=== PATIENT | male | born 1995 | race Two or more races ===

== ENCOUNTER 2023-01-19 09:17 | Inpatient (IN) ==
--- NOTE | 2023-01-19 09:54 | Emergency Department Note ---
History of Present Illness General Chief complaint: Fever Stated complaint: FEVER, CHILLS, BODY PAIN, LOST OF TASTE Time Seen by Provider: 01/19/23 09:40 History of Present Illness Maximum Pain Intensity: 7 this is a 27-year-old male that presents to the emergency department via private vehicle with complaints of "fever". The patient notes that this past Wednesday he began with chills, fever. Patient notes since that time he has had some trouble with his hearing and feels as though that sounds are amplified. He notes associated head pressure, eye pain. Patient also notes balance issues as of this morning. Patient notes a redness to his body. Patient feels very fatigued. Patient notes loss of taste as well as associated cough this morning. He also notes some shortness of breath with talking. No known recent exposure to ill contacts. Patient is currently on Bactrim for cellulitis of secondary to infected tattoo of the left upper extremity but notes that the arm seems to be almost fully healed. No known drug allergy. No pertinent past medical history. No recent surgeries. Patient denies any rhinorrhea, chest pain, nausea, vomiting, diarrhea, sore throat. Home Medications Medication Instructions Recorded Confirmed Type ibuprofen 200 mg tablet 400 mg PO Q6H PRN Fever Or Pain 01/19/23 01/19/23 History Allergies Allergy/AdvReac Type Severity Reaction Status Date / Time No Known Drug Allergies Allergy Unknown Verified 01/19/23 14:57 Past Med/Surg History Medical History No pertinent past medical history Surgical History No pertinent past surgical history Social History Feels Safe at Home: Yes Review of Systems A total of 10 systems reviewed and were otherwise negative Physical Exam Vital Signs Vital Signs - 24 hr 01/19/23 09:34 01/19/23 11:46 01/19/23 12:04 Temperature 39.1 C H 39.9 C H Temperature Source Temporal Artery Scan Oral Pulse Rate 137 H 124 H Pulse Rate from SpO2 Sensor Pulse Rhythm Regular Respiratory Rate 20 26 H Respiratory Effort / Characteristics Non-Labored Spontaneous Respiratory Depth Normal Blood Pressure 145/71 H Blood Pressure Mean 95 Pulse Oximetry 100 99 Oxygen Delivery Method Room Air Room Air Sepsis Recent Fever Within 48 Hours No Sepsis New/Unexplained Change in Mental Status N/A Sepsis Action Taken by Nursing Adv Provider Notified 01/19/23 12:12 01/19/23 11:42 01/19/23 11:50 Temperature Temperature Source Pulse Rate 124 H 124 H 124 H Pulse Rate from SpO2 Sensor Pulse Rhythm Respiratory Rate 21 23 Respiratory Effort / Characteristics Respiratory Depth Blood Pressure Blood Pressure Mean Pulse Oximetry 96 98 Oxygen Delivery Method Room Air Room Air Sepsis Recent Fever Within 48 Hours Sepsis New/Unexplained Change in Mental Status Sepsis Action Taken by Nursing 01/19/23 12:00 01/19/23 12:10 01/19/23 12:20 Temperature Temperature Source Pulse Rate 125 H 122 H 124 H Pulse Rate from SpO2 Sensor Pulse Rhythm Respiratory Rate 27 H 29 H 28 H Respiratory Effort / Characteristics Respiratory Depth Blood Pressure Blood Pressure Mean Pulse Oximetry 98 98 97 Oxygen Delivery Method Room Air Room Air Room Air Sepsis Recent Fever Within 48 Hours Sepsis New/Unexplained Change in Mental Status Sepsis Action Taken by Nursing 01/19/23 13:00 01/19/23 13:05 01/19/23 13:05 Temperature Temperature Source Pulse Rate 116 H Pulse Rate from SpO2 Sensor 115 H Pulse Rhythm Respiratory Rate 24 20 Respiratory Effort / Characteristics Respiratory Depth Blood Pressure 146/81 H Blood Pressure Mean 102 Pulse Oximetry 99 100 Oxygen Delivery Method Room Air Room Air Sepsis Recent Fever Within 48 Hours Sepsis New/Unexplained Change in Mental Status Sepsis Action Taken by Nursing VITAL SIGNS - Vital signs and nursing notes were reviewed. Tachycardic, febrile. GENERAL -27-year-old male appearing his stated age who is in no acute distress. Communicates well with provider and answers questions appropriately. SKIN -there is a mild erythematous hue to the patient's integument without skin sloughing. No bullae. Negative Nikolsky sign. No vesicles. Tattoo of the left upper extremity is within normal limits without evidence of concerning surrounding erythema or edema. No lymphangitic streaking. HEAD - NC/AT. EYES - Sclera anicteric. EARS - No deformities of external structures noted on gross examination bilaterally. No pain elicited with palpation of the tragus bilaterally. External auditory canals without discharge or otorrhea. Tympanic membranes pearly marie without retraction or bulging. No fluid or purulent material visualized behind the TM. Handle of malleus, umbo, cone of light, pars tensa/flaccid all easily visualized. NOSE - Midline and without cyanosis. No epistaxis or purulent drainage noted. Septum midline without deviation or septal hematoma noted. MOUTH/OROPHARYNX - Without perioral cyanosis. Buccal mucosa pink and moist and without leukoplakia. Tongue midline with equal elevation of palate bilaterally. No tonsillar hypertrophy, erythema, or exudates noted. Good dentition noted. NECK - Neck with FROM. Supple to palpation. No lymphadenopathy noted. No nuchal rigidity. No meningismus. LUNGS - Chest wall symmetric without accessory muscle use, intercostals retractions, or central cyanosis. Normal vesicular breath sounds CTA B/L. No wheezes, rales, or rhonchi appreciated. CARDIAC - RRR with S1/S2. No murmur, rubs, or gallops appreciated. ABDOMEN - Abdominal contour normal without pulsations or visible masses. BS normoactive all four quadrants. No tenderness, palpable masses, hepato splenomegaly, or ascites noted. EXTREMITIES - No clubbing or peripheral cyanosis. +5/5 strength noted in UE/LE bilaterally. NEUROLOGIC - Cranial nerves II through XII grossly intact. PSYCH - A&O, and cooperates fully with examiner. Pt is very pleasant and interacts well with examiner. Course Administered Medications Acetaminophen (Acetaminophen 325 Mg Tab) 650 mg PO Q4H PRN PRN Reason: Pain or Fever Stop: 02/18/23 15:34 Last Admin: 01/19/23 15:54 Dose: 650 mg Documented By: MARC Lactated Ringer's (Lr) 1,000 mls @ 125 mls/hr IV .Q8H [facility] Stop: 02/18/23 15:34 Last Admin: 01/19/23 15:54 Dose: 125 mls/hr Documented By: MARC Discontinued Medications Acetaminophen (Acetaminophen 325 Mg Tab) 650 mg PO NOW STA Stop: 01/19/23 10:22 Last Admin: 01/19/23 10:35 Dose: 650 mg Documented By: ANDREA Sodium Chloride (Nss 1000ml) 1,000 mls @ 999 mls/hr IV .Q1H1M JU Stop: 01/19/23 11:00 Last Infusion: 01/19/23 11:45 Dose: 0 mls/hr Documented By: Admin: 01/19/23 10:35 Dose: 999 mls/hr Documented By: ANDREA Ceftriaxone Sodium (Rocephin) 2,000 mg in 70 mls @ 140 mls/hr IV NOW STA Stop: 01/19/23 11:55 Last Infusion: 01/19/23 12:33 Dose: 0 mls/hr Documented By: Admin: 01/19/23 11:45 Dose: 140 mls/hr Documented By: ANDREA Sodium Chloride (Nss 1000ml) 1,000 mls @ 999 mls/hr IV .Q1H1M JU Stop: 01/19/23 12:30 Last Infusion: 01/19/23 13:03 Dose: 0 mls/hr Documented By: Admin: 01/19/23 11:45 Dose: 999 mls/hr Documented By: ANDREA Medical Decision Making Laboratory Data 01/19/23 10:15 01/19/23 10:15 Lab Results 01/19/23 01/19/23 01/19/23 Range/Units 10:00 10:15 10:15 WBC (4.8-10.8) K/ul RBC (4.70-6.10) M/uL Hgb (14.0-18.0) g/dl Hct (42.0-52.0) % MCV (80.0-100.0) fL MCH (25.0-34.0) pg MCHC (32.0-36.0) g/dL RDW Std Deviation (36.4-46.3) fL RDW Coeff of Kip (11.5-14.5) % Plt Count (130-400) K/uL MPV (9.4-12.4) fL Immature Gran % (Auto) % Neut % (Auto) % Lymph % (Auto) % [place] % (Auto) % Eos % (Auto) % Baso % (Auto) % Neut # (Auto) (1.40-6.50) K/uL Lymph # (Auto) (1.2-3.4) K/uL [place] # (Auto) (0.11-0.59) K/uL Eos # (Auto) (0-0.50) K/uL Baso # (Auto) (0-0.2) K/uL Immature Gran # (Auto) (0.01-0.20) K/uL ESR (0-15) mm/hr Sodium (136-145) mmol/L Potassium (3.5-5.1) mmol/L Chloride (98-107) mmol/L Carbon Dioxide (21-32) mmol/L Anion Gap (3-11) BUN (6-23) mg/dl Creatinine (0.6-1.4) mg/dl Est Cr Clr Drug Dosing ml/min Est GFR ( Amer) ml/min Est GFR (Non-Af Amer) ml/min BUN/Creatinine Ratio (10-20) Glucose (70-99(Fasting)) mg/dl Lactate 1.6 (0.4-2.0) mmol/L Calcium (8.6-10.3) mg/dl Total Bilirubin (0.2-1.0) mg/dl AST (13-39) U/L ALT (7-52) U/L Alkaline Phosphatase (34-104) U/L Total Creatine Kinase (30-223) U/L Troponin I High Sens (0-20) pg/ml C-Reactive Protein (0-0.5) mg/dl Total Protein (6.0-8.3) gm/dl Albumin (3.4-5.0) gm/dl Globulin (2.5-4.0) gm/dl Albumin/Globulin Ratio (0.9-2) Procalcitonin 1.05 H (0-0.5) ng/ml Urine Color Urine Appearance (Clear) Urine pH (4.5-7.5) Ur Specific [place] (1.000-1.030) Urine Protein (Negative) Urine Glucose (UA) (Negative) Urine Ketones (Negative) Urine Blood (Negative) Urine Nitrite (Negative) Urine Bilirubin (Negative) Urine Urobilinogen (Negative) Ur Leukocyte Esterase (Negative) Anaplasma Smear Babesia Smear Lyme Disease IgG Ab Negative (Negative) Lyme Disease IgM Ab Negative (Negative) Monoscreen Negative (Negative) Group A Strep (PCR) NOT DETECTED (NotDetected) 01/19/23 01/19/23 01/19/23 Range/Units 10:15 10:15 10:15 WBC 3.54 L (4.8-10.8) K/ul RBC 4.99 (4.70-6.10) M/uL Hgb 14.1 (14.0-18.0) g/dl Hct 41.8 L (42.0-52.0) % MCV 83.8 (80.0-100.0) fL MCH 28.3 (25.0-34.0) pg MCHC 33.7 (32.0-36.0) g/dL RDW Std Deviation 38.0 (36.4-46.3) fL RDW Coeff of Kip 12.4 (11.5-14.5) % Plt Count 133 (130-400) K/uL MPV 9.7 (9.4-12.4) fL Immature Gran % (Auto) 0.3 % Neut % (Auto) 74.8 % Lymph % (Auto) 14.7 % [place] % (Auto) 9.6 % Eos % (Auto) 0.6 % Baso % (Auto) 0.0 % Neut # (Auto) 2.65 (1.40-6.50) K/uL Lymph # (Auto) 0.52 L (1.2-3.4) K/uL [place] # (Auto) 0.34 (0.11-0.59) K/uL Eos # (Auto) 0.02 (0-0.50) K/uL Baso # (Auto) 0.00 (0-0.2) K/uL Immature Gran # (Auto) 0.01 (0.01-0.20) K/uL ESR (0-15) mm/hr Sodium 132 L (136-145) mmol/L Potassium 4.1 (3.5-5.1) mmol/L Chloride 100 (98-107) mmol/L Carbon Dioxide 22 (21-32) mmol/L Anion Gap 10 (3-11) BUN 18 (6-23) mg/dl Creatinine 2.22 H (0.6-1.4) mg/dl Est Cr Clr Drug Dosing 72.6 ml/min Est GFR ( Amer) 46.0 ml/min Est GFR (Non-Af Amer) 39.7 ml/min BUN/Creatinine Ratio 8.1 L (10-20) Glucose 132 H (70-99(Fasting)) mg/dl Lactate (0.4-2.0) mmol/L Calcium 8.3 L (8.6-10.3) mg/dl Total Bilirubin 0.4 (0.2-1.0) mg/dl AST 45 H (13-39) U/L ALT 58 H (7-52) U/L Alkaline Phosphatase 50 (34-104) U/L Total Creatine Kinase 210 Cancelled (30-223) U/L Troponin I High Sens 15.5 Cancelled (0-20) pg/ml C-Reactive Protein (0-0.5) mg/dl Total Protein 7.0 (6.0-8.3) gm/dl Albumin 4.1 (3.4-5.0) gm/dl Globulin 2.9 (2.5-4.0) gm/dl Albumin/Globulin Ratio 1.4 (0.9-2) Procalcitonin (0-0.5) ng/ml Urine Color Urine Appearance (Clear) Urine pH (4.5-7.5) Ur Specific [place] (1.000-1.030) Urine Protein (Negative) Urine Glucose (UA) (Negative) Urine Ketones (Negative) Urine Blood (Negative) Urine Nitrite (Negative) Urine Bilirubin (Negative) Urine Urobilinogen (Negative) Ur Leukocyte Esterase (Negative) Anaplasma Smear Babesia Smear Lyme Disease IgG Ab (Negative) Lyme Disease IgM Ab (Negative) Monoscreen (Negative) Group A Strep (PCR) (NotDetected) 01/19/23 01/19/23 01/19/23 Range/Units 12:36 12:36 12:37 WBC (4.8-10.8) K/ul RBC (4.70-6.10) M/uL Hgb (14.0-18.0) g/dl Hct (42.0-52.0) % MCV (80.0-100.0) fL MCH (25.0-34.0) pg MCHC (32.0-36.0) g/dL RDW Std Deviation (36.4-46.3) fL RDW Coeff of Kip (11.5-14.5) % Plt Count (130-400) K/uL MPV (9.4-12.4) fL Immature Gran % (Auto) % Neut % (Auto) % Lymph % (Auto) % [place] % (Auto) % Eos % (Auto) % Baso % (Auto) % Neut # (Auto) (1.40-6.50) K/uL Lymph # (Auto) (1.2-3.4) K/uL [place] # (Auto) (0.11-0.59) K/uL Eos # (Auto) (0-0.50) K/uL Baso # (Auto) (0-0.2) K/uL Immature Gran # (Auto) (0.01-0.20) K/uL ESR 4 (0-15) mm/hr Sodium (136-145) mmol/L Potassium (3.5-5.1) mmol/L Chloride (98-107) mmol/L Carbon Dioxide (21-32) mmol/L Anion Gap (3-11) BUN (6-23) mg/dl Creatinine (0.6-1.4) mg/dl Est Cr Clr Drug Dosing ml/min Est GFR ( Amer) ml/min Est GFR (Non-Af Amer) ml/min BUN/Creatinine Ratio (10-20) Glucose (70-99(Fasting)) mg/dl Lactate (0.4-2.0) mmol/L Calcium (8.6-10.3) mg/dl Total Bilirubin (0.2-1.0) mg/dl AST (13-39) U/L ALT (7-52) U/L Alkaline Phosphatase (34-104) U/L Total Creatine Kinase (30-223) U/L Troponin I High Sens (0-20) pg/ml C-Reactive Protein 0.94 H (0-0.5) mg/dl Total Protein (6.0-8.3) gm/dl Albumin (3.4-5.0) gm/dl Globulin (2.5-4.0) gm/dl Albumin/Globulin Ratio (0.9-2) Procalcitonin (0-0.5) ng/ml Urine Color Urine Appearance (Clear) Urine pH (4.5-7.5) Ur Specific [place] (1.000-1.030) Urine Protein (Negative) Urine Glucose (UA) (Negative) Urine Ketones (Negative) Urine Blood (Negative) Urine Nitrite (Negative) Urine Bilirubin (Negative) Urine Urobilinogen (Negative) Ur Leukocyte Esterase (Negative) Anaplasma Smear See Comment Babesia Smear See Comment Lyme Disease IgG Ab (Negative) Lyme Disease IgM Ab (Negative) Monoscreen (Negative) Group A Strep (PCR) (NotDetected) 01/19/23 Range/Units 12:45 WBC (4.8-10.8) K/ul RBC (4.70-6.10) M/uL Hgb (14.0-18.0) g/dl Hct (42.0-52.0) % MCV (80.0-100.0) fL MCH (25.0-34.0) pg MCHC (32.0-36.0) g/dL RDW Std Deviation (36.4-46.3) fL RDW Coeff of Kip (11.5-14.5) % Plt Count (130-400) K/uL MPV (9.4-12.4) fL Immature Gran % (Auto) % Neut % (Auto) % Lymph % (Auto) % [place] % (Auto) % Eos % (Auto) % Baso % (Auto) % Neut # (Auto) (1.40-6.50) K/uL Lymph # (Auto) (1.2-3.4) K/uL [place] # (Auto) (0.11-0.59) K/uL Eos # (Auto) (0-0.50) K/uL Baso # (Auto) (0-0.2) K/uL Immature Gran # (Auto) (0.01-0.20) K/uL ESR (0-15) mm/hr Sodium (136-145) mmol/L Potassium (3.5-5.1) mmol/L Chloride (98-107) mmol/L Carbon Dioxide (21-32) mmol/L Anion Gap (3-11) BUN (6-23) mg/dl Creatinine (0.6-1.4) mg/dl Est Cr Clr Drug Dosing ml/min Est GFR ( Amer) ml/min Est GFR (Non-Af Amer) ml/min BUN/Creatinine Ratio (10-20) Glucose (70-99(Fasting)) mg/dl Lactate (0.4-2.0) mmol/L Calcium (8.6-10.3) mg/dl Total Bilirubin (0.2-1.0) mg/dl AST (13-39) U/L ALT (7-52) U/L Alkaline Phosphatase (34-104) U/L Total Creatine Kinase (30-223) U/L Troponin I High Sens (0-20) pg/ml C-Reactive Protein (0-0.5) mg/dl Total Protein (6.0-8.3) gm/dl Albumin (3.4-5.0) gm/dl Globulin (2.5-4.0) gm/dl Albumin/Globulin Ratio (0.9-2) Procalcitonin (0-0.5) ng/ml Urine Color Yellow Urine Appearance Clear (Clear) Urine pH 5.5 (4.5-7.5) Ur Specific [place] 1.017 (1.000-1.030) Urine Protein Negative (Negative) Urine Glucose (UA) Negative (Negative) Urine Ketones Negative (Negative) Urine Blood Negative (Negative) Urine Nitrite Negative (Negative) Urine Bilirubin Negative (Negative) Urine Urobilinogen Negative (Negative) Ur Leukocyte Esterase Negative (Negative) Anaplasma Smear Babesia Smear Lyme Disease IgG Ab (Negative) Lyme Disease IgM Ab (Negative) Monoscreen (Negative) Group A Strep (PCR) (NotDetected) Imaging Data Radiologist's Impression: Chest X-Ray 01/19/23 10:01 XR chest 1V portable HISTORY: 27 years-old Male fever acute fever COMPARISON: None TECHNIQUE: AP view of the chest FINDINGS: Cardiomediastinal and hilar silhouettes are within normal limits. No pneumothor ax, pleural effusion, airspace consolidation or pulmonary edema. The bones appear grossly intact. IMPRESSION: No acute process. ACT 112: Negative or not required by law. The above report was generated using voice recognition software. It may contain grammatical, syntax or spelling errors. Electronically signed by: Semaj Azul M.D. 01/19/2023 10:16 AM [facility] Narrative Patient was seen and evaluated as above in room A09. Review was performed of triage nursing notes and vital signs. After obtaining a thorough history and physical examination the above work up was performed. Patient presents to us today with a fever. He clinically is well-appearing and nontoxic. He has some associated chills, body aches and headache. Despite being tachycardic and f ebrile, he looks well. No photophobia on examination. No nuchal rigidity. Presentation not consistent with that of SJS. Options of care were discussed with the patient. IV access was established. Labs were drawn. Mild leukopenia. No concerning anemia. Mild hyponatremia 134. OLIVIA with creatinine of 2.2 noted. Glucose 132. Calcium low at 8.3. Transaminitis with AST at 45 and ALT at 58. Troponin within normal range. Procalcitonin 1.05. Lactate normal. Blood cultures pending. Urinalysis negative. Bio fire panel negative. Lyme testing negative. Strep testing negative. Monotest negative. IV fluids ordered noting the patient's febrile state in the setting of tachycardia with suspected dehydration. In addition, acetaminophen was ordered to treat the fever. Empiric antibiotics also added. Although my suspicion is high of a viral illness, I do believe that further evaluation and management in inpatient setting is warranted at this time noting the patient's tachycardic and febrile state in the setting of OLIVIA. LP was considered however at this time we will refrain as the patient on examination does not appear meningitic. No nuchal rigidity. Case discussed with the ospitalist service. Please refer to further documentation regarding his stay. Case discussed with the attending physician. GCS: 15 In the evaluation and treatment of this patient the following differential diagnoses were entertained: Pneumonia, meningitis, encephalitis, viral illness, mononucleosis, strep pharyngitis, hepatitis, bacteremia, sepsis, SJS, among others. Impression & Plan Fever, SIRS (systemic inflammatory response syndrome), Transaminitis, Leukopenia, OLIVIA (acute kidney injury) Discharge Plan Visit Data Chief Complaint: Fever Stated Complaint: FEVER, CHILLS, BODY PAIN, LOST OF TASTE ED Provider: Dima Mayes ED Midlevel Provider: Jonny Espino Discharge Problem: Fever, SIRS (systemic inflammatory response syndrome), Transaminitis, Leukopenia, OLIVIA (acute kidney injury) Patient Disposition: Admitted As Inpatient Condition: Good Discharge Instructions Interventions: ED Discharge Assessment Last Done: 01/19/23 15:35
[2023-01-19] MEDS ORDERED: SODIUM CHLORIDE 0.9% 1000ML 1,000 ML IV SCH ×2 (10:00→11:30)
--- NOTE | 2023-01-19 10:17 | XRay Report ---
XR chest 1V portable HISTORY: 27 years-old Male fever acute fever COMPARISON: None TECHNIQUE: AP view of the chest FINDINGS: Cardiomediastinal and hilar silhouettes are within normal limits. No pneumothorax, pleural effusion, airspace consolidation or pulmonary edema. The bones appear grossly intact. IMPRESSION: No acute process. ACT 112: Negative or not required by law. The above report was generated using voice recognition software. It may contain grammatical, syntax o r spelling errors. Electronically signed by: Semaj Azul M.D. 01/19/2023 10:16 AM
[2023-01-19] MEDS ORDERED: ACETAMINOPHEN 325 MG TAB PO STA (10:21)
[2023-01-19 11:00] LABS: Eosinophils # (auto) 0.02 K/uL (0-0.50); Eosinophils % (auto) 0.6 %; Hematocrit (blood only) 41.8 % (42.0-52.0); Hemoglobin 14.1 g/dl (14.0-18.0); Immature Granulocytes # (auto) 0.01 K/uL (0.01-0.20); Immature Granulocytes % (auto) 0.3 %; Lymphocytes # (auto) 0.52 K/uL (1.2-3.4); Lymphocytes % (auto) 14.7 %; Mean Corpuscular Hemoglobin 28.3 pg (25.0-34.0); Mean Corpuscular Hgb Conc 33.7 g/dL (32.0-36.0); Mean Corpuscular Volume 83.8 fL (80.0-100.0); Mean Platelet Volume 9.7 fL (9.4-12.4); Monocytes # (auto) 0.34 K/uL (0.11-0.59); Monocytes % (auto) 9.6 %; Neutrophils # (auto) 2.65 K/uL (1.40-6.50); Neutrophils % (auto) 74.8 %; Platelet Count 133 K/uL (130-400); RDW Coefficient of Variation 12.4 % (11.5-14.5); Red Blood Count 4.99 M/uL (4.70-6.10); White Blood Count 3.54 K/ul (4.8-10.8)
[2023-01-19 11:10] LABS: Albumin Globulin Ratio 1.4 (0.9-2); Albumin Level 4.1 gm/dl (3.4-5.0); BUN Creatinine Ratio 8.1 (10-20); Bilirubin,Total 0.4 mg/dl (0.2-1.0); Calcium 8.3 mg/dl (8.6-10.3); Creatinine Clr Calc Pharmacy 72.6 ml/min; Est GFR (Non-African American) 39.7 ml/min; Globulin 2.9 gm/dl (2.5-4.0); Potassium 4.1 mmol/L (3.5-5.1)
[2023-01-19] MEDS ORDERED: cefTRIAXone SODIUM 2,000 MG/70 ML BAG IV STA (11:26)
[2023-01-19 11:35] LABS: Monotest Negative (Negative)
[2023-01-19 11:45] LABS: Adenovirus PCR Not Detected (NotDetected); Bordetella parapertussis PCR Not Detected (NotDetected); Bordetella pertussis PCR Not Detected (NotDetected); Chlamydia pneumoniae PCR Not Detected (NotDetected); Coronavirus 229E PCR Not Detected (NotDetected); Coronavirus CoV-2 (COVID19)PCR Not Detected (NotDetected); Coronavirus HKU1 PCR Not Detected (NotDetected); Coronavirus NL63 PCR Not Detected (NotDetected); Coronavirus OC43PCR Not Detected (NotDetected); Human Metapneumovirus PCR Not Detected (NotDetected); Influenza A PCR Not Detected (NotDetected); Influenza B PCR Not Detected (NotDetected); Mycoplasma pneumoniae PCR Not Detected (NotDetected); Parainfluenza Virus 1 PCR Not Detected (NotDetected); Parainfluenza Virus 2 PCR Not Detected (NotDetected); Parainfluenza Virus 3 PCR Not Detected (NotDetected); Parainfluenza Virus 4 PCR Not Detected (NotDetected); Respiratory Syncytial VirusPCR Not Detected (NotDetected); Rhinovirus/Enterovirus PCR Not Detected (NotDetected)
--- NOTE | 2023-01-19 11:53 | History & Physical Report ---
Date of Service January 19, 2023 Assessment & Plan (1) Fever: Plan: Suspect viral with mild elevation in AST/ALT, leukopenia and generalized myalgias. Alternatively adverse reaction to Bactrim. Recent tattoo work and infection increases risk of bacterial sepsis (although skin infection resolved, mild procalcitonin and lack of neutrophilia makes this unlikely), viral hepatitis and HIV (pt specifically consented for this). MRSA nose swab to assess need to cover for MRSA empirically. Tick borne illness - blood smear negative, anaplasmosis/ehrlichiosis/babesiosis DNA PCR sent No altered mental status or nuchal rigidity - will defer LP on admission No family or personal history of autoimmune conditions Monoscreen negative, Lyme IgG/IgM negative, Biofire [employer] [place] [employer] PCR negative Continue empiric ceftriaxone pending blood cultures Stop Bactrim Consult infectious disease (2) Elevated serum creatinine: Plan: May not represent true OLIVIA due to creatine supplementation (although not had this for 1 week) and Bactrim use Continue IV fluids with LR @125ml/hr overnight Avoid NSAIDs Repeat BMP in AM (3) SIRS (systemic inflammatory response syndrome): Plan: Effectively sepsis although I am yet to find a source Lactate 1.6 Follow up blood cultures (4) Transaminitis: Plan: Trend (5) Leukopenia: Plan: Lymphopenia specifically Plan VTE Prophylaxis - low risk Diet - regular Disposition - admit to med/tele Admission and Anticipated Discharge Date Admission Date: January 19, 2023 History of Present Illness Chief Complaint: Fever Primary Care Provider: Leonard Neal MD Rodri Smith is a 27 year old male who presents to the ER with fever. He reports sudden onset high fever and chills starting 2 days ago with associated headache and generalized myalgias. Symptoms were getting worse and today on getting up he also felt a little unbalanced therefore decided to come to the ER for evaluation. This is on a background of have a left arm tattoo on December 27. He had a mild skin infection following this initially treated with Keflex on January 03 for 7 days. Since it was not improving as expected he went back to his PCP who started him on Bactrim for 10 days which although he picked up on the , he started taking on the and is still on this with a few tablets left. In the ER he was noted to have a fever of 39.1 degrees celsius. He notes coughing a couple of times today. He denies any specific sinus pain, sore throat, shortness of breath, chest pain, abdominal pain, diarrhea, urinary symptoms, back pain. He was also noted to have a creatinine of 2.22 with no baseline. He reports taking creatine powder supplements usually daily but none in the last week. Only recent travel has been to [place] but not recently out of the country. No known tick bites. Allergies Allergy/AdvReac Type Severity Reaction Status Date / Time No Known Drug Allergies Allergy Unknown Verified 01/19/23 14:57 Home Medications Medication Instructions Recorded Confirmed Type ibuprofen 200 mg tablet 400 mg PO Q6H PRN Fever Or Pain 01/19/23 01/19/23 History Past Med/Surg History Medical History Allergic conjunctivitis Allergic rhinitis No pertinent past medical history Surgical History No pertinent past surgical history Social History Feels Safe at Home: Yes Review of Systems Review of Systems: All systems reviewed & are unremarkable except as noted in HPI & below Physical Exam Constitutional: WD/WN, vitals as above Eyes: normal visual sharp by confrontation, + conjunctival abnormality (injected), PERRL and EOM intact bilaterally; no nystagmus Blurring visual acuity ENMT: external ear and nose normal, oropharynx normal Neck: trachea midline, no thyromegaly Respiratory: normal respiratory effort, lungs clear to auscultation Cardiovascular: Rate/Rhythm: regular rhythm and + tachycardic Heart Sounds: no murmur Extremities: normal capillary refill; no calf tenderness and no pedal edema Gastrointestinal (Abdomen): normal bowel sounds, soft, nontender, no hepatosplenomegaly Skin: no rashes, warm and dry Neurologic: moves all extremities and awake; not confused Psychiatric: A+Ox3, euthymic affect Genitourinary: no CVA tenderness Lymphatic: no cervical lymphadenopathy Results & Data Results & Data Vital Signs (Past 12 Hours) Vital Signs Temp Pulse Resp BP Pulse Ox O2 Del Method 01/19/23 11:46 39.9 C H 01/19/23 09:34 39.1 C H 137 H 20 145/71 H 100 Room Air Laboratory Results Abnormal lab results 01/19/23 01/19/23 01/19/23 Range/Units 10:15 10:15 10:15 WBC 3.54 L (4.8-10.8) K/ul Hct 41.8 L (42.0-52.0) % Lymph # (Auto) 0.52 L (1.2-3.4) K/uL Sodium 132 L (136-145) mmol/L Creatinine 2.22 H (0.6-1.4) mg/dl BUN/Creatinine Ratio 8.1 L (10-20) Glucose 132 H (70-99(Fasting)) mg/dl Calcium 8.3 L (8.6-10.3) mg/dl AST 45 H (13-39) U/L ALT 58 H (7-52) U/L C-Reactive Protein (0-0.5) mg/dl Procalcitonin 1.05 H (0-0.5) ng/ml 01/19/23 Range/Units 12:36 WBC (4.8-10.8) K/ul Hct (42.0-52.0) % Lymph # (Auto) (1.2-3.4) K/uL Sodium (136-145) mmol/L Creatinine (0.6-1.4) mg/dl BUN/Creatinine Ratio (10-20) Glucose (70-99(Fasting)) mg/dl Calcium (8.6-10.3) mg/dl AST (13-39) U/L ALT (7-52) U/L C-Reactive Protein 0.94 H (0-0.5) mg/dl Procalcitonin (0-0.5) ng/ml Diagnostic Findings XR chest 1V portable HISTORY: 27 years-old Male fever acute fever COMPARISON: None TECHNIQUE: AP view of the chest FINDINGS: Cardiomediastinal and hilar silhouettes are within normal limits. No pneumothorax, pleural effusion, airspace consolidation or pulmonary edema. The bones appear grossly intact. IMPRESSION: No acute process. Medications Administered ER Medications Given: NSS 1L bolus x2 Acetaminophen 650mg PO Ceftriaxone 2g IV ECG Rate (beats per minute): 122 Rhythm: sinus tachycardia Findings: no acute ischemic change Comparison ECG Date: no prior available Code Status & VTE Plan Code Status Full VTE Prophylaxis Plan VTE Prophylaxis will be ordered: No PG Care Time/CCT Total # of Minutes Spent Total Time Spent with Patient: Total time spent is greater than 50% in coordination of care (as documented) at patient's floor/unit and/or counseling patient: Coding Level of Care Code 11306 INT INP/OBS CARE 3/75MIN Diagnoses Fever R50.9 Elevated serum creatinine R79.89 SIRS (systemic inflammatory response syndrome) R65.10 Transaminitis R74.01 Leukopenia D72.819
[2023-01-19 11:54] LABS: Procalcitonin 1.05 ng/ml (0-0.5)
[2023-01-19 12:00] LABS: Lyme Ab IgG w/WB Rflx Negative (Negative); Lyme Ab IgM w/WB Rflx Negative (Negative)
[2023-01-19 12:03] LABS: Troponin I High Sensitivity 15.5 pg/ml (0-20)
[2023-01-19 13:13] LABS: Appearance Urine Clear (Clear); Bilirubin Urine Negative (Negative); Blood Urine Negative (Negative); Color Urine Yellow; Glucose Urine UA Negative (Negative); Ketones Urine Negative (Negative); Leukocyte Esterase Urine Negative (Negative); Nitrite Urine Negative (Negative); Protein Urine Negative (Negative); Specific Gravity Urine 1.017 (1.000-1.030); Urobilinogen Urine Negative (Negative); pH Urine 5.5 (4.5-7.5)
--- NOTE | 2023-01-19 13:48 | Electrocardiogram Report ---
Test Reason : Blood Pressure : / mmHG Vent. Rate : 122 BPM Atrial Rate : 122 BPM P-R Int : 158 ms QRS Dur : 084 ms QT Int : 308 ms P-R-T Axes : 017 008 005 degrees QTc Int : 438 ms Poor data quality, interpretation may be adversely affected Sinus tachycardia Nonspecific T wave abnormality Abnormal ECG No previous ECGs available Confirmed by Isai Tavarez ([id number]) on 01/19/2023 1:47:55 PM Referred By: REFERRED SELF Confirmed By:Isai Tavarez
[2023-01-19] MEDS: ACETAMINOPHEN 325 MG TAB PO PRN ×2 (15:54→21:56)
[2023-01-19] MEDS: LACTATED RINGER'S 1,000 ML IV SCH ×2 (15:54→21:50)
[2023-01-20] MEDS: LACTATED RINGER'S 1,000 ML IV SCH ×2 (06:06→17:45)
[2023-01-20] MEDS: ACETAMINOPHEN 325 MG TAB PO PRN ×2 (06:09→21:45)
[2023-01-20 07:27] LABS: Eosinophils % (auto) 7.7 %; Hematocrit (blood only) 38.2 % (42.0-52.0); Hemoglobin 12.8 g/dl (14.0-18.0); Lymphocytes # (auto) 1.03 K/uL (1.2-3.4); Lymphocytes % (auto) 39.6 %; Mean Corpuscular Hemoglobin 28.1 pg (25.0-34.0); Mean Corpuscular Hgb Conc 33.5 g/dL (32.0-36.0); Mean Corpuscular Volume 83.8 fL (80.0-100.0); Monocytes # (auto) 0.24 K/uL (0.11-0.59); Monocytes % (auto) 9.2 %; Neutrophils # (auto) 1.13 K/uL (1.40-6.50); Neutrophils % (auto) 43.5 %; Platelet Count 110 K/uL (130-400); RDW Coefficient of Variation 12.7 % (11.5-14.5); RDW Standard Deviation 38.6 fL (36.4-46.3); Red Blood Count 4.56 M/uL (4.70-6.10)
[2023-01-20 07:37] LABS: INR 1.1 (0.9-1.1); Partial Thromboplastin Ratio 1.1; Partial Thromboplastin Time 31.6 Seconds (21.0-31.0); Prothrombin Time 11.8 Seconds (9.0-12.0)
--- NOTE | 2023-01-20 07:38 | Hospitalist Progress Note ---
Date of Service January 20, 2023 Assessment & Plan (1) Fever: Plan: 27 y/o male presented to the ED with fevers, chills, KOHLI, myalgias of two days duration with progression of symptoms noted to meet sepsis criteria with leukopenia, tachycardia, tachypnea, and fever admitted for further workup. #Sepsis/SIRS - tachycardia, leukopenia, tachypnea, fever Possible sources: New tattoo added 12/27 with subsequent skin infection treated with 7 days of Keflex which provided interval improvement, but not resolution. He was then treated with Bactrim for 10 days. No known tick bites. No recent travel out of the country. Was recently in [place]. Likely viral in nature vs adverse reaction to Bactrim. Bacterial sepsis less likely thought reasonable to cover with abx for now. Will check viral hepatitis panel, tick borne illnesses, MRSA nares, HIV. Work Up: Monoscreen negative, Lyme IgG/IgM negative, Biofire PATIENT TRANSPORT ORDERLY PCR negative. Lactate 1.6. HIV negative. MRSA nares negative. [] f/u workup [] ID consulted, appreciate recs [] d/c Bactrim [] Ceftriaxone [] cultures #Elevated serum creatinine - improving OLIVIA vs creatine supplementation vs bactrim use. Patient does take creatine supplements. [] IVF 125mL/hr [] avoid nephrotoxins [] AM CMP #Transaminitis - improving Mild. Trend. #Leukopenia Specifically lymphopenia. HIV negative. Could be in the setting of sepsis. Continue to monitor. VTE Prophylaxis: low risk FENGI: regular IVF 125 mL/hr Disposition: admit to med/tele, anticipate home with self care Code status: full (2) Elevated serum creatinine: (3) SIRS (systemic inflammatory response syndrome): (4) Transaminitis: Plan: Trend (5) Leukopenia: Admission and Anticipated Discharge Date Admission Date: January 19, 2023 Supervising Physician Co-Signing Physician Notes I personally examined the patient and verified all otto points of history and exam, discussed case, and agree with decision making with Dr Regalado feeling much better. no further fevers. other than headache and eye pain - that are largely better, no focal sx vitals noted nad heent nc at mmm breathing unlabored no accessory muscles good effort skin no rashes no pallor or icterus. CBC, CMP, peripheral smear for parasites, bio fire, chest x-ray noted. Sepsis syndrome with pancytopeniafortunately HIV negative, seems most likely viral (question parvovirus) but given that we are in a very endemic area, discussed with patient that tickborne such as anaplasmosis or babesiosis is still quite possible, and testing has a fairly significant false-negative rate (particularly given the high frequency with which we see Anaplasma in the area)currently getting better, watchful waiting reasonable versus empiric treatment for tickborne. Hopefully home soon. Otherwise as above Subjective Patient reports feeling improved. Notes continued headache. Improved with Tylenol. No more fevers. Review of Systems Review of Systems: See HPI Physical Exam Physical Exam: Gen: well appearing male in NAD HEENT: AT NC MMM neck supple - no nuchal rigidity Resp: No increased work of breathing, CTAB no wheezing CV: RRR no m/r/g clinically well perfused Skin: warm dry no bruising, several well healed tattoos GI: non distended MSK: no gross deformities, moves all extremities spontaneously Psych: appropriate mood and affect Neuro: alert and oriented Results & Data Results & Data Vital Signs (Past 12 Hours) Vital Signs Temp Pulse Pulse Resp BP Pulse Ox O2 Del Method 01/20/23 06:41 36.7 C 97 H 18 131/71 96 Room Air 01/20/23 04:15 37.1 C 90 18 124/68 100 Room Air 01/19/23 22:36 95 H 01/19/23 22:44 37.4 C 94 H 18 150/77 H 100 Room Air 01/19/23 21:50 37.4 C Laboratory Results 01/20/23 06:44 01/20/23 06:44 Diagnostic Findings Chest X-Ray 01/19/23 10:01 XR chest 1V portable HISTORY: 27 years-old Male fever acute fever COMPARISON: None TECHNIQUE: AP view of the chest FINDINGS: Cardiomediastinal and hilar silhouettes are within normal limits. No pneumothorax, pleural effusion, airspace consolidation or pulmonary edema. The bones appear grossly intact. IMPRESSION: No acute process. Resident Activity Tracking Resident Involvement: Resident Care Provided Care Provided: Adult Hospital Medicine
[2023-01-20 08:14] LABS: Albumin Level 3.7 gm/dl (3.4-5.0); BUN Creatinine Ratio 7.5 (10-20); Bilirubin Direct 0.1 mg/dl (0-0.2); Bilirubin,Total 0.4 mg/dl (0.2-1.0); Calcium 7.7 mg/dl (8.6-10.3); Creatinine Clr Calc Pharmacy 106.4 ml/min; Est GFR (African American) 75.8 ml/min; Est GFR (Non-African American) 65.4 ml/min; Magnesium 1.8 mg/dl (1.7-2.4); Potassium 3.8 mmol/L (3.5-5.1); Total Protein 6.2 gm/dl (6.0-8.3)
[2023-01-20] MEDS ORDERED: cefTRIAXone SODIUM 2,000 MG in DEXTROSE 5% 50 ML IV SCH (12:00)
[2023-01-20 12:27] LABS: HBSAG NON-REACTIVE (NON-REACTIVE); Hepatitis A Antibody IgM NON-REACTIVE (NON-REACTIVE); Hepatitis B Core Antibody IgM NON-REACTIVE (NON-REACTIVE)
--- NOTE | 2023-01-20 15:13 | Infectious Disease Consult ---
Date of Consultation January 20, 2023 Assessment & Plan (1) Fever: #fever -no epidemiological risk factors appreciated for tick or arthropod borne infection; however, labs with mild leukopenia, thrombocytopenia, and elevation of LFTs, are suggestive. Nonspecific presentation of fever, headache, neck discomfort, myalgias. No rash or lesions appreciated -also considered reaction to bactrim, i.e. aseptic meningitis, but after seeing pt, appears less likely -pt feels much better, reports close to baseline, now afebrile- has received CTX -lyme infection possible despite negative testing- may be too early. Other tick-borne infectious PCR testing is in process. Rickettsial testing not sent #elevated cr known to pt from creatine intake- unclear baseline. May also have been impacted by recent bactrim Plan Rec: Pt reports significant improvement. Would treat empirically for doxy- responsive infections based on lab abnormalities with doxycycline 100mg PO q12 x 10 days. Pt should take precautions to avoid sunburn and pill esophagitis. Pt was advised to see his PCP to followup on pending labs, and have bloodwork CBC/CMP repeated in approx 1 week. He should have lyme serology repeated in 1 month. He does not plan to resume bactrim as L arm has improved. Please page with any questions. Iva Dietz M.D. [facility] Pager [phone] Consultation Information Consultation was provided via telemedicine using two-way real-time interactive telecommunication between the patient and the telemedicine provider. For the duration of the visit, the provider was performing the assessment from a differe nt facility than the patient. This includesuse of bluetooth stethoscope forauscultationperformed by the telepresenter that the telemedicine provider can hear if described in the physical exam. Clarification Operator contact information: Please call [facility] Call Center . (Phone Number For Physician Use Only) After establishing a telemedicine visit, patient was: Patient was verified with two unique identifiers, Patient/authorized rep acknowledged consent and understanding and Gave permission to continue telehealth session Time Spent with Patient: Initial => 40 min History of Present Illness Attending Physician: Dima Hernández DO History of Present Illness ID consult requested for fever of unclear cause in this 27-year-old male, past medical history of seasonal allergies, on immunotherapy, who presented to the ED on 01/19/2023 reporting fever that started 3 days ago associated with chills. Patient also reported head pressure and eye pain, fatigue, myalgias and ass ociated cough as well as some shortness of breath while talking. He denied any recent exposure to sick contacts. He reported currently being on Bactrim for cellulitis secondary to an infected tattoo on the left arm but notes that arm appears to have healed. He had previously been on Keflex and then was prescribed 10 days of Bactrim which she started on the . He denied any nausea, vomiting, or diarrhea. He reported taking creatine powder daily, last dose a week ago. In the ED, temperature was 39.9, heart rate 137, blood pressure 145/71, respiratory rate 20, O2 saturation 100% on room air. Tympanic membranes were noted to be pearly marie without retraction, bulging, or of evidence of fluid. Admission labs significant for WBC 3.54, 74.8% neutrophils, hemoglobin 14.1, platelets 133, lactate 1.6, procalcitonin 1.05, creatinine 2.22, AST 45, ALT 58, T. bili 0.4, alk phos 50, CK 210 ESR 4, CRP 0.94 UA negative. Lyme IgG/IgM, monoscreen and group A strep PCR were negative. Portable chest x-ray showed no acute process. RPR, acute hepatitis panel and HIV were negative. Anaplasma DNA, Babesia DNA, Ehrlichia DNA are pending. Respiratory viral panel was negative. 01/19 MRSA screen negative. 01/19 blood cultures are NGTD. Patient was started on empiric ceftriaxone pending blood cultures. Pt reports he has not been told in past that he had elevated LFTs. Has been told his cr is slightly elevated due to creatine. He gets labs with annual visits. He reports last week went to [place], then [facility]. Did not really do outdoor activities, just walked but not in wooded areas. He cannot think of particularly tick or arthropod exposures. No pets. Just sat next to dogs while eating. No other animal exposures. He feels much better today. 90% back to baseline. Only residual sxs are mild head pressure and mild posterior neck discomfort. No rash or skin lesions noted. Reports cough and SOB have resolved. No abd pain. Having occasional loose stools- not frequent. Allergies Allergy/AdvReac Type Severity Reaction Status Date / Time No Known Drug Allergies Allergy Unknown Verified 01/19/23 14:57 Home Medications Medication Instructions Recorded Confirmed Type ibuprofen 200 mg tablet 400 mg PO Q6H PRN Fever Or Pain 01/19/23 01/19/23 History Patient History Medical History Allergic conjunctivitis Allergic rhinitis No pertinent past medical history Surgical History No pertinent past surgical history Social History Smoking Status: Never smoker Second Hand Exposure: No; Do You Dip or Chew Tobacco: No; Tobacco Cessation Education Requested by Patient: No Hx Alcohol Use: Yes Hx Substance Use: No Preferred Language: Japanese Communication Ability: Effective Stationary Equipment Mechanic Required: No Beliefs That Will Affect Care: None Current Living Situation: Other Current Living Situation Comment: Apartment with roommates Other Information That Helps Us Care for You: No Feels Safe at Home: Yes Safety Concerns: Feels Safe At This Time Assistive Devices: None Physical Exam Physical Exam: PE: Gen: Awake, alert, NAD, well-appearing HEENT: anicteric, neck supple, negative jolt sign Resp: no resp distress on RA Abd: Soft, NT/ND Extr: no c/c/e L arm very mildly erythematous around tattoo Skin: no appreciated skin lesions/rash, RUE peripheral IV. several tattoos including on back Results & Data Vital Signs (Past 12 Hours) Vital Signs Temp Pulse Pulse Resp BP Pulse Ox O2 Del Method 01/20/23 11:30 37.5 C 77 18 124/77 100 Room Air 01/20/23 07:48 108 H 01/20/23 06:41 36.7 C 97 H 18 131/71 96 Room Air 01/20/23 04:15 37.1 C 90 18 124/68 100 Room Air Laboratory Results 01/19/23 10:20 Aerobic Blood Culture - Preliminary Blood No growth in Aerobic bottle after 24 hours. Anaerobic Blood Culture - Preliminary No growth in Anaerobic bottle after 24 hours. 01/19/23 10:15 Aerobic Blood Culture - Preliminary Blood No growth in Aerobic bottle after 24 hours. Anaerobic Blood Culture - Preliminary No growth in Anaerobic bottle after 24 hours. 01/20/23 01/20/23 01/20/23 06:44 06:44 06:44 WBC 2.60 L RBC 4.56 L Hgb 12.8 L Hct 38.2 L MCV 83.8 MCH 28.1 MCHC 33.5 RDW Std Deviation 38.6 RDW Coeff of Kip 12.7 Plt Count 110 L MPV 10.0 Immature Gran % (Auto) 0.0 Neut % (Auto) 43.5 Lymph % (Auto) 39.6 [place] % (Auto) 9.2 Eos % (Auto) 7.7 Baso % (Auto) 0.0 Neut # (Auto) 1.13 L Lymph # (Auto) 1.03 L [place] # (Auto) 0.24 Eos # (Auto) 0.20 Baso # (Auto) 0.00 Immature Gran # (Auto) 0.00 L PT 11.8 INR 1.1 APTT 31.6 H PTT Ratio 1.1 Sodium 136 Potassium 3.8 Chloride 104 Carbon Dioxide 26 Anion Gap 6 BUN 11 Creatinine 1.47 H D Est Cr Clr Drug Dosing 106.4 Est GFR ( Amer) 75.8 Est GFR (Non-Af Amer) 65.4 BUN/Creatinine Ratio 7.5 L Glucose 108 H Calcium 7.7 L Magnesium 1.8 Total Bilirubin 0.4 Direct Bilirubin 0.1 AST 40 H ALT 50 Alkaline Phosphatase 41 Total Protein 6.2 Albumin 3.7 Nasal Screen MRSA (PCR) RPR Hepatitis A IgM Ab Hep Bs Antigen Hep Bs Ag Confirmation Hep B Core IgM Ab Hepatitis C Ab (EIA) Hep C Ab Signal/Cutoff HIV (1&2) Ag & Ab Conf 01/19/23 01/19/23 01/19/23 16:00 12:37 12:37 WBC RBC Hgb Hct MCV MCH MCHC RDW Std Deviation RDW Coeff of Kip Plt Count MPV Immature Gran % (Auto) Neut % (Auto) Lymph % (Auto) [place] % (Auto) Eos % (Auto) Baso % (Auto) Neut # (Auto) Lymph # (Auto) [place] # (Auto) Eos # (Auto) Baso # (Auto) Immature Gran # (Auto) PT INR APTT PTT Ratio Sodium Potassium Chloride Carbon Dioxide Anion Gap BUN Creatinine Est Cr Clr Drug Dosing Est GFR ( Amer) Est GFR (Non-Af Amer) BUN/Creatinine Ratio Glucose Calcium Magnesium Total Bilirubin Direct Bilirubin AST ALT Alkaline Phosphatase Total Protein Albumin Nasal Screen MRSA (PCR) Negative RPR Nonreactive Hepatitis A IgM Ab Hep Bs Antigen Hep Bs Ag Confirmation Hep B Core IgM Ab Hepatitis C Ab (EIA) Hep C Ab Signal/Cutoff HIV (1&2) Ag & Ab Conf NON-REACTIVE 01/19/23 12:36 WBC RBC Hgb Hct MCV MCH MCHC RDW Std Deviation RDW Coeff of Kip Plt Count MPV Immature Gran % (Auto) Neut % (Auto) Lymph % (Auto) [place] % (Auto) Eos % (Auto) Baso % (Auto) Neut # (Auto) Lymph # (Auto) [place] # (Auto) Eos # (Auto) Baso # (Auto) Immature Gran # (Auto) PT INR APTT PTT Ratio Sodium Potassium Chloride Carbon Dioxide Anion Gap BUN Creatinine Est Cr Clr Drug Dosing Est GFR ( Amer) Est GFR (Non-Af Amer) BUN/Creatinine Ratio Glucose Calcium Magnesium Total Bilirubin Direct Bilirubin AST ALT Alkaline Phosphatase Total Protein Albumin Nasal Screen MRSA (PCR) RPR Hepatitis A IgM Ab NON-REACTIVE Hep Bs Antigen NON-REACTIVE Hep Bs Ag Confirmation TNP Hep B Core IgM Ab NON-REACTIVE Hepatitis C Ab (EIA) NON-REACTIVE Hep C Ab Signal/Cutoff 0.05 HIV (1&2) Ag & Ab Conf Diagnostic Findings Chest X-Ray 01/19/23 10:01 XR chest 1V portable HISTORY: 27 years-old Male fever acute fever COMPARISON: None TECHNIQUE: AP view of the chest FINDINGS: Cardiomediastinal and hilar silhouettes are within normal limits. No pneumothorax, pleural effusion, airspace consolidation or pulmonary edema. The bones appear grossly intact. IMPRESSION: No acute process. ACT 112: Negative or not required by law. The above report was generated using voice recognition software. It may contain grammatical, syntax or spelling errors. Electronically signed by: Semaj Azul M.D. 01/19/2023 10:16 AM Medications Administered Current Medications Acetaminophen (Acetaminophen 325 Mg Tab) 650 mg PO Q4H PRN PRN Reason: Pain or Fever Stop: 02/18/23 15:34 Last Admin: 01/20/23 06:09 Dose: 650 mg Lactated Ringer's (Lr) 1,000 mls @ 125 mls/hr IV .Q8H JU Stop: 02/18/23 15:34 Last Infusion: 01/20/23 12:37 Dose: 125 mls/hr Ceftriaxone Sodium 2,000 mg/ (Dextrose) 70 mls @ 100 mls/hr IV Q24H [facility]; Protocol Stop: 01/22/23 11:59 Last Infusion: 01/20/23 12:37 Dose: Infused
--- NOTE | 2023-01-20 17:02 | Billing Data ---
Date of Service January 20, 2023 Coding Level of Care Code 20874 SUB INP/OBS CARE MIN
[2023-01-20] MEDS ORDERED: diphenhydrAMINE Capsule 25 MG CAP PO ONE (21:45)
[2023-01-21] MEDS: LACTATED RINGER'S 1,000 ML IV SCH ×2 (01:44→10:57)
--- NOTE | 2023-01-21 07:14 | Discharge Summary ---
Date of Service January 21, 2023 Admission HPI Per Admitting Provider Rodri Smith is a 27 year old male who presents to the ER with fever. He reports sudden onset high fever and chills starting 2 days ago with associated headache and generalized myalgias. Symptoms were getting worse and today on getting up he also felt a little unbalanced therefore decided to come to the ER for evaluat ion. This is on a background of have a left arm tattoo on December 27. He had a mild skin infection following this initially treated with Keflex on January 03 for 7 days. Since it was not improving as expected he went back to his PCP who started him on Bactrim for 10 days which although he picked up on the , he started taking on the and is still on this with a few tablets left. In the ER he was noted to have a fever of 39.1 degrees celsius. He notes coughing a couple of times today. He denies any specific sinus pain, sore throat, shortness of breath, chest pain, abdominal pain, diarrhea, urinary symptoms, back pain. He was also noted to have a creatinine of 2.22 with no baseline. He reports taking creatine powder supplements usually daily but none in the last week. Only recent travel has been to [place] but not recently out of the country. No known tick bites. Admission Exam Per Admitting Provider Constitutional: WD/WN, vitals as above Eyes: normal visual sharp by confrontation, + conjunctival abnormality (injected), PERRL and EOM intact bilaterally; no nystagmus Blurring visual acuity ENMT: external ear and nose normal, oropharynx normal Neck: trachea midline, no thyromegaly Respiratory: normal respiratory effort, lungs clear to auscultation Cardiovascular: Rate/Rhythm: regular rhythm and + tachycardic Heart Sounds: no murmur Extremities: normal capillary refill; no calf tenderness and no pedal edema Gastrointestinal (Abdomen): normal bowel sounds, soft, nontender, no h epatosplenomegaly Skin: no rashes, warm and dry Neurologic: moves all extremities and awake; not confused Psychiatric: A+Ox3, euthymic affect Genitourinary: no CVA tenderness Lymphatic: no cervical lymphadenopathy Principal Diagnosis SIRS Discharge Exam Gen: well appearing male in NAD HEENT: AT NC MMM neck supple - no nuchal rigidity Resp: No increased work of breathing, CTAB no wheezing CV: RRR no m/r/g clinically well perfused Skin: warm dry no bruising, several well healed tattoos GI: non distended MSK: no gross deformities, moves all extremities spontaneously Psych: appropriate mood and affect Neuro: alert and oriented Discharge Data Allergies Allergy/AdvReac Type Severity Reaction Status Date / Time No Known Drug Allergies Allergy Unknown Verified 01/19/23 14:57 Consultations 01/19/23 11:39 ED Decision to Admit Stat 01/19/23 12:30 Consult Infectious Diseases Routine Ordered Studies Microbiology 01/19/23 10:20 Blood Aerobic Blood Culture - Preliminary No growth in Aerobic bottle after 24 hours. 01/19/23 10:20 Blood Anaerobic Blood Culture - Preliminary No growth in Anaerobic bottle after 24 hours. 01/19/23 10:15 Blood Aerobic Blood Culture - Preliminary No growth in Aerobic bottle after 24 hours. 01/19/23 10:15 Blood Anaerobic Blood Culture - Preliminary No growth in Anaerobic bottle after 24 hours. Chest X-Ray 01/19/23 10:01 XR chest 1V portable HISTORY: 27 years-old Male fever acute fever COMPARISON: None TECHNIQUE: AP view of the chest FINDINGS: Cardiomediastinal and hilar silhouettes are within normal limits. No pneumothorax, pleural effusion, airspace consolidation or pulmonary edema. The bones appear grossly intact. IMPRESSION: No acute process. 01/21/23 06:41 01/21/23 06:41 Hospital Course (1) Fever: 27 y/o male presented to the ED with fevers, chills, KOHLI, myalgias of two days duration with progression of symptoms noted to meet sepsis criteria with leukopenia, tachycardia, tachypnea, and fever admitted for further workup now stabilized and ready for discharge home. #Sepsis/SIRS - tachycardia, leukopenia, tachypnea, fever Possible sources: New tattoo added 12/27 with subsequent skin infection treated with 7 days of K eflex which provided interval improvement, but not resolution. He was then treated with Bactrim for 10 days. No known tick bites. No recent travel out of the country. Was recently in [place]. ID consulted, appreciate recs Work Up: Monoscreen negative, Lyme IgG/IgM negative, [employer] OFFICE SUPPORT PCR negative. Lactate 1.6. HIV negative. MRSA nares negative. Viral hepatitis panel negative. Tickborne negative to date. Cx NGTD x24 hrs. As this is an endemic area for tickborne illnesses such as anaplasmosis or babesiosis this still may be on the differential. Likely viral in natures vs adverse reaction to Bactrim. Would stop empiric abx on d/c. If patient continues to improve would not recommend further treatment with doxycycline. Will send script with specific instructions to start doxycycline 100 mg BID for 10 days if symptoms worsen or fail to improve over the next few days. Rec close f/u with PCP - to f/u pending studies, repeat lyme serology in one month, repeat CBC/CMP in about a week. #Elevated serum creatinine - normalized OLIVIA vs creatine supplementation vs bactrim use. Patient does take creatine supplements. IVF resuscitation while inpatient. Rec hydration and avoiding nephrotoxins. F/u CMP with PCP in about a week. #Transaminitis - resolved Mild. Resolved during hospital course. F/u CMP with PCP in about one week. #Leukopenia Specifically lymphopenia. HIV negative. Could be in the setting of sepsis. F/u CBC in about one week. VTE Prophylaxis: low risk FENGI: regular IVF 125 mL/hr Disposition: admit to med/tele, anticipate home with self care Code status: full (2) Elevated serum creatinine: (3) SIRS (systemic inflammatory response syndrome): (4) Transaminitis: Trend (5) Leukopenia: Total Time Total Time Spent Total Time Spent (In Minutes): <30 Discharge Plan Discharge Items Patient Disposition: Home - Self-Care Reason For Visit: FEVER, SIRS Discharge Diagnosis: SIRS Condition on Discharge: Good Activity: Per Instructions section Non-emergency contact: Primary Care Provider Call non-emergency contact if: your symptoms worsen and your temperature is above 101.5 Follow-up/Referrals: Leonard Neal MD [Primary Care Provider] - 01/26/23 2:05 pm () Diet: Regular Addtl Attending Provider Instructions: You were admitted to the hospital with concern for sepsis. You improved quickly with rehydration, fever reducers, and empiric antibiotics. Your symptoms are likely because of a viral infection. There is some concern for a tickborne illness. We will send doxycycline 100 mg BID for 10 days duration. Please pick this up from the pharmacy, but do not take the medication immediately. If you fall to improve over the weekend or symptoms worsen then begin and complete the course of antibiotics. You can take ibuprofen/tylenol for fever reduction/pain. You can also try flonase for your eustachian tube dysfunction. A discharge summary will be sent to your primary care physician to ensure continuity of care. Please bring this discharge summary with you to your next office appointment so that your provider can review it at that time. Follow-up appointments: We have requested a follow-up appointment with your primary care physician within one week of discharge. Please call their office if you do not hear from them. Keep all your follow-up appointments as already scheduled. If you cannot make an appointment, notify your provider. Medications: Your medication list has been reviewed and reconciled upon discharge to ensure accuracy and continuity of care. An updated list of all your medications is included with your hospital discharge paperwork. Please review this list closely, and make note of any changes. We sent a new medication called doxycycline to your pharmacy. Please take this medication twice a day for 10 days IF symptoms worsen or fail to improve over the next few days. If you have any issues filling these prescriptions, please call [phone] and ask to leave a message for Dr. Regalado Take your medications as instructed; do not skip a dose of your medicines. Make sure all of your doctors know every medicine you are taking (including [id number] medicines, vitamins, and supplements). Call your primary care provider before taking any new medicines (including over- the-counter medicines, vitamins, and supplements), because some of these may interact with your current medications, or may make your symptoms worse. Tell your primary care provider if you cannot afford your medications. CONTACT YOUR PRIMARY CARE PROVIDER if you experience any of the following: fevers, chills, racing heart rate nausea or vomiting Difficulty following your treatment plan, or difficulty taking medications CALL 911 OR GO TO THE EMERGENCY DEPARTMENT if you experience any of the followi ng: Sudden, severe abdominal pain or nausea/vomiting Severe chest pain, or chest pain that radiates (moves) to your jaw or arm Sudden, severe shortness of breath or difficulty breathing Thank you for allowing us to participate in your care Pending Studies at Discharge: Yes Stand-Alone Forms: My [facility] [employer], Smoking Cessation Medications and DC Order Prescriptions: New doxycycline hyclate 100 mg capsule 100 mg PO BID 10 Days Qty: 20 0RF Continued ibuprofen 200 mg Tablet 400 mg PO Q6H PRN (Reason: Fever Or Pain) Discharge Orders: Discharge Order (Routine); Ordered 01/21/23 Ordered By: Anika Regalado Admission Data Admit Date/Time: 01/19/23 13:15 Attending Provider: Dima Hernández Admit Provider: Jensen Vaz Primary Care Provider: Leonard Neal Other Providers: Jensen Vaz ; Sneha Ray ; Kaz Chino ; Ness Constantino ; Newton Greco ; Iva Dietz ; Julianne Noriega ; Natalya Kendrick ; Kimberly Arroyo ; Reena Jones Other Interventions: Discharge Summary Assessment (RN) Last Done: 01/21/23 11:44 Supervising Physician Co-Signing Physician Notes I personally examined the patient and verified all otto points of history and exam, discussed case, and agree with decision making with Dr Regalado feels better some headache and L ear pain otherwise would like to go home. vitals noted nad heent nc at mmm breathing unlabored no accessory muscles good effort skin no rashes no pallor or icterus. neck supple L>R suboccipitals high tone/tender/decreased ROM - inhibitory pressure - improved (pt tolerated well); L TM clear fluid no erythema. CBC, CMP and cultures noted Sepsis syndrome with pancytopeniafortunately HIV negative, seems most likely viral (question parvovirus) but given that we are in a very endemic area, discussed with patient that tickborne such as anaplasmosis or babesiosis is still quite possible, and testing has a fairly significant false-negative rate (particularly given the high frequency with which we see Anaplasma in the area)currently getting better, feels good to go home - discussed empiric doxy vs watchful waiting - he opts for watchful waiting (doxy Rx sent so that if needed - discussed "red flags" - he would have on hand for faster turnaround to treatment) - close PCP f/u. OMT for tension headache. clear fluid behind TM - OMT/gum chewing/time/flonase Otherwise as above Resident Activity Tracking Resident Involvement: Resident Care Provided Care Provided: Adult Hospital Medicine
[2023-01-21 07:28] LABS: Hematocrit (blood only) 40.7 % (42.0-52.0); Hemoglobin 13.3 g/dl (14.0-18.0); Mean Corpuscular Hemoglobin 28.1 pg (25.0-34.0); Mean Corpuscular Hgb Conc 32.7 g/dL (32.0-36.0); Mean Platelet Volume 10.2 fL (9.4-12.4); Platelet Count 137 K/uL (130-400); RDW Coefficient of Variation 12.6 % (11.5-14.5); RDW Standard Deviation 39.9 fL (36.4-46.3); Red Blood Count 4.73 M/uL (4.70-6.10); White Blood Count 2.81 K/ul (4.8-10.8)
[2023-01-21 07:39] LABS: Albumin Globulin Ratio 1.3 (0.9-2); Albumin Level 3.8 gm/dl (3.4-5.0); BUN Creatinine Ratio 7.9 (10-20); Bilirubin,Total 0.4 mg/dl (0.2-1.0); Calcium 8.2 mg/dl (8.6-10.3); Creatinine Clr Calc Pharmacy 142.3 ml/min; Est GFR (Non-African American) 88.9 ml/min; Globulin 2.9 gm/dl (2.5-4.0); Total Protein 6.7 gm/dl (6.0-8.3)
[2023-01-21 07:52] LABS: Partial Thromboplastin Ratio 1.1; Partial Thromboplastin Time 29.9 Seconds (21.0-31.0); Prothrombin Time 10.9 Seconds (9.0-12.0)
--- NOTE | 2023-01-21 16:55 | Billing Data ---
Date of Service January 21, 2023 Coding Level of Care Code 66579 IN/OBS DISCH 30 MIN/LESS
[2023-01-21 22:07] LABS: Babesia microti DNA Not Detected (Not Detected)
[2023-01-23 09:08] LABS: Ehrlichia chaff DNA Bld Negative (Negative)
--- NOTE | 2023-01-27 13:29 | Coding Query ---
CODING QUERY To promote full compliance with coding requirements relating to patient care, provider participation is requested in all cases of chemical checker uncertainty. Please assist us with the question(s) below: Coding Question(s): The Discharge Summary documents, in the Principal Diagnosis area, "SIRS", and in the Hospital Course, "Sepsis/SIRS", and under Supervising Physician, "Sepsis Syndrome", with documentation under Addtl Attending Provider Instructions of, You were admitted to the hospital with concern for sepsis". Please clarify below, in your clinical opinion, as SIRS and Sepsis Syndrome would not code to Sepsis, and it is not clear if Sepsis is ruled-out or not: ( x) Sepsis is still possible with SIRS due to infectious source(s) meaning Sepsis ( ) Sepsis is Ruled-Out. Please specify further below, in your clinical opinion: ( ) Sepsis is Ruled-Out and has only Sepsis Syndrome (this would be symptoms only) ( ) Sepsis is Ruled-Out and has SIRS due to Non-Infectious source ( ) Sepsis is Ruled-Out and has Other: Please Specify ( ) Other: Please Specify Physician's Response(s): Thank you Gabi Camara Principal Diagnosis: "that condition established after study, to be chiefly responsible for occasioning the admission of the patient to the hospital for care." Co-Existing Principal Diagnosis: "when two or more diagnoses equally meet the criteria for principal diagnosis as determined by the circumstances of admission, diagnostic work up, and/or therapy provided, and the Alphabetic Index, Tabular List, or another coding guideline does not provide sequencing direction, any one of the diagnoses may be sequenced first." "When the physician has documented what appears to be a current diagnosis in the body of the record, but has not included the diagnosis in the final diagnostic statement, the physician should be asked whether the diagnosis should be added." (Source Coding [facility] 2 QTR90. p3-4) SORAIDA
== END 2023-01-21 12:38 | disposition home or self-care (01) | DRG 872 ==
LOC: ED 09:17 → EDINP 13:15 → SUATTDRO 13:15 → 2N 15:35